=== PATIENT | female | born 1980 | race Caucasian/White ===

== ENCOUNTER 2018-11-11 10:00 | Emergency (ER) | payer BC ==
[2018-11-11 12:05] VITALS: BP 153/91
--- NOTE | 2018-11-11 12:18 | UC ---
Respiratory Complaint HPI - HPI Summary HPI Summary: Pt is 38 y/o female with hx of seasonal allergies with chest congestion and dry cough x 7 days. States her symptoms began as sinus pressure, ear pain, and sore throat, but now include only cough, chest congestion, and intermittent chest pain with cough. Denies fevers, shortness of breath. Has been taking mucinex, flonase, and decongestant but without relief of symptoms. - History of Current Complaint Chief Complaint: UCRespiratory Stated Complaint: COUGH EAR PAIN RESP ISSUE Time Seen by Provider: 11/11/18 12:02 Hx Obtained From: Patient Hx Last Menstrual Period: CURRENT Onset/Duration: Lasting Days Timing: Constant Severity Initially: Mild Severity Currently: Mild Pain Intensity: 3 Pain Scale Used: 0-10 Numeric Character: Cough: Nonproductive Aggravating Factors: Allergens Alleviating Factors: Nothing Associated Signs And Symptoms: Positive: Pleuritic Chest Pain. Negative: Dyspnea, Fever, Chills, Sinus Discomfort Related History: Seasonal Allergies - Allergies/Home Medications Allergies/Adverse Reactions: Allergies Allergy/AdvReac Type Severity Reaction Status Date / Time No Known Allergies Allergy Verified 11/11/18 12:05 Home Medications: Home Medications Guaifen/Phenyleph/Acetaminophn [Mucinex Sinus-Max Severe] 1 tab PO PRN 11/11/18 [History] PMH/Surg Hx/FS Hx/Imm Hx Previously Healthy: Yes - Surgical History Surgical History: None - Family History Known Family History: Positive: Non-Contributory - Social History Occupation: Employed Full-time Alcohol Use: Occasionally Substance Use Type: None Smoking Status (MU): Never Smoked Tobacco Review of Systems All Other Systems Reviewed And Are Negative: Yes Constitutional: Negative: Fever, Chills ENT: Negative: Sore Throat, Ear Ache, Sinus Congestion, Sinus Pain/Tenderness Respiratory: Positive: Cough - nonproductive. Negative: Shortness Of Breath Cardiovascular: Positive: Chest Pain - with cough Gastrointestinal: Negative: Abdominal Pain, Vomiting, Nausea Physical Exam Triage Information Reviewed: Yes Appearance: Well-Appearing, No Pain Distress Vital Signs: Initial Vital Signs Temp 99.2 F 11/11/18 12:00 Pulse 86 11/11/18 12:00 Resp 16 11/11/18 12:00 BP 153/91 11/11/18 12:00 Pulse Ox 100 11/11/18 12:00 Vital Signs Reviewed: Yes Eye Exam: Normal Eyes: Positive: Conjunctiva Clear ENT: Positive: Normal ENT inspection, Pharynx normal, TMs normal. Negative: TM bulging, TM red, Tonsillar swelling, Tonsillar exudate, Sinus tenderness Neck: Positive: Supple, Nontender Respiratory: Positive: Lungs clear, No respiratory distress. Negative: Crackles , Rhonchi, Wheezing Cardiovascular: Positive: RRR, No Murmur Abdomen Description: Positive: Nontender. Negative: Distended Musculoskeletal Exam: Normal Musculoskeletal: Positive: Strength Intact, ROM Intact Neurological Exam: Normal Neurological: Positive: Alert Psychological Exam: Normal Skin Exam: Normal Respiratory Course/Dx - Course Course Of Treatment: 38 y/o otherwise healthy female with 7 days of nonproductive cough, symptoms consistent with upper respiratory infection. Discharged with prescriptions for tessalon, steroid, and albuterol inhaler. May return for new or worsening symptoms. Patient seen in collaboration with the physician nursing assistant student. Likely viral versus allergic. No distress. - Differential Dx/Diagnosis Differential Diagnosis/HQI/PQRI: Bronchitis, Lower Resp Infection, Sinusitis Provider Diagnosis: Upper respiratory infection Discharge - Sign-Out/Discharge Documenting (check all that apply): Patient Departure All imaging exams completed and their final reports reviewed: No Studies - Discharge Plan Condition: Improved Disposition: HOME Prescriptions: Albuterol HFA INHALER* [Ventolin HFA Inhaler*] 2 puff INH Q4H PRN #1 mdi PRN Reason: Sob/Wheezing Benzonatate CAP* [Tessalon 100 MG CAP*] 100 mg PO TID PRN #20 cap PRN Reason: Cough Dexamethasone TAB* [Decadron TAB*] 8 mg PO DAILY #8 tab Patient Education Materials: Upper Respiratory Infection (ED) Referrals: [facility] [Outside] [facility] [Outside] Additional Instructions: Stay well-hydrated. Humidifier while sleeping. Avoid smokers. Return with high fever, persistent cough, worse or other concerns. - Billing Disposition and Condition Condition: IMPROVED Disposition: Home - Attestation Statements Document Initiated by Scribe: Yes Documenting Scribe: JOHNIE Graham Provider For Whom Scriblissette is Documenting (Include Credential): Dr. Ramakrishna Julio Scribe Attestation: ICristobal PA-S, scribed for Dr. Ramakrishna Julio on 11/11/18 at 1342. Scribe Documentation Reviewed: Yes Provider Attestation: The documentation as recorded by the scriblissette, JOHNIE Graham accurately reflects the service I personally performed and the decisions made by me, Dr. Ramakrishna Julio Status of Scribe Document: Viewed
== END 2018-11-11 12:30 | disposition home or self-care (01) ==
LOC: UCEAST 10:00
DX: J06.9 Acute upper respiratory infection, unspecified (principal)
CPT/HCPCS: 99202; G0463